=== PATIENT | female | born 1950 | race Caucasian/White ===

== ENCOUNTER 2023-01-11 09:16 | Inpatient (IN) | payer MEDICARE, SELFPAY ==
[2023-01-11 09:40] LABS: #Basophils 0.2 thou/uL (0.0-0.2); #Eosinphils 1.7 thou/uL (0.0-0.7); #Monocytes 0.6 thou/uL (0.11-0.59); #Neutrophils 7.7 thou/uL (1.40-6.50); %Basophils 1.3 % (0.0-1.0); %Eosinophils 13.7 % (0.0-10.0); %Lymphocytes 17.7 % (21.0-51.0); %Monocytes 5.1 % (0.0-10.0); %Neutrophils 61.9 % (42.0-75.0); Hematocrit 41.3 % (36.0-47.0); Hemoglobin 13.2 g/dL (12.0-16.0); Mean Corpuscular Hemoglobin 30.1 pg (27.0-31.0); Mean Corpuscular Volume 94.3 fl (78.0-98.0); Mean Platelet Volume 8.7 fL (7.4-10.4); Platelet Count 318 10x3/uL (130-400); RBC Distribution Width 14.6 % (11.5-14.5); Red Blood Cell (RBC) Count 4.38 mill/uL (4.20-5.40); White Blood Cell (WBC) Count 12.4 10x3/uL (4.8-10.8)
[2023-01-11] MEDS ORDERED: Albuterol 2.5 MG/0.5 ML NEB ONE (09:40)
[2023-01-11 10:06] LABS: ALT (SGPT) 22 U/L (8-55); AST (SGOT) 29 U/L (5-34); Albumin 4.2 g/dL (3.4-4.8); Alkaline Phosphatase 62 U/L (40-110); Anion Gap 15 mmol/L (10-20); BUN (Urea Nitrogen) 19 mg/dL (9.8-20.1); Bilirubin, Total 0.4 mg/dL (0.2-1.2); Calc. Creatinine Clearance 0 mL/min (70-130); Calcium 8.7 mg/dL (7.8-10.44); Carbon Dioxide 22 mmol/L (23-31); Chloride 108 mmol/L (98-107); Estimated GFR 74; Glucose 120 mg/dL (83-110); Potassium 4.3 mmol/L (3.5-5.1); Protein, Total 6.2 g/dL (5.8-8.1); Sodium 141 mmol/L (136-145)
[2023-01-11 10:19] LABS: Troponin I 0.253 ng/mL (< 0.028)
[2023-01-11 12:22] LABS: Actual Bicarbonate (HCO3v) 24.2 mEq/L (22-28); Base Excess -1.8 mEq/L (-2.0 to +3.0); Calcium, Ionized (venous) 1.14 mmol/L (1.16-1.32); Chloride (VBG) 105 mmol/L (98-106); Hematocrit-VBG 43 % (36.0-47.0); Hemoglobin (Hb) 14.6 g/dL (11.7-16.1); Potassium (VBG) 4.31 mmol/L (3.70-5.30); Sodium 143 mmol/L (133-146); pH (venous) 7.344 (7.32-7.43)
[2023-01-11 12:40] LABS: Magnesium 3.1 mg/dL (1.6-2.6)
[2023-01-11 13:17] LABS: Troponin I 0.795 ng/mL (< 0.028)
[2023-01-11] MEDS ORDERED: Aspirin Chewable 81 MG TAB ONE (13:23)
[2023-01-11] MEDS ORDERED: Ipratropium/Albuterol 3 ML NEB NEB PRN (13:59)
[2023-01-11] MEDS ORDERED: Aspirin 81 mg Enteric Coated Tablet PO SCH (14:00)
[2023-01-11] MEDS ORDERED: Nitroglycerin 0.4 MG TAB (25 Tab Bottle) SL PRN (14:00)
[2023-01-11] MEDS ORDERED: methylPREDNISolone Sod Succ 40 MG VIAL IVP SCH ×2 (14:00→21:00)
[2023-01-11] MEDS ORDERED: Senokot S 8.6-50 MG TAB PO PRN (14:02)
[2023-01-11] MEDS ORDERED: Calcium Carbonate 500 MG ChewTAB PO PRN (14:02)
[2023-01-11] MEDS ORDERED: Doxycycline 100 MG CAP PO SCH (15:00)
[2023-01-11] MEDS ORDERED: cefTRIAXone\\ROCEPHIN 1 GM in Sodium Chloride 0.9% 100 ML IVPB SCH (15:00)
[2023-01-11] MEDS: Ipratropium/Albuterol 3 ML NEB NEB SCH ×3 (15:33→22:01)
[2023-01-11] MEDS ORDERED: methylPREDNISolone Sod Succ 40 MG VIAL ONE (16:02)
[2023-01-11] MEDS ORDERED: cefTRIAXone (ROCEPHIN) 1 GM VIAL ONE (16:02)
[2023-01-11] MEDS ORDERED: Doxycycline 100 MG CAP ONE (16:02)
[2023-01-11 16:14] LABS: Troponin I 1.113 ng/mL (< 0.028)
[2023-01-11] MEDS: Acetaminophen 325 MG TAB PO PRN (19:02)
[2023-01-11 19:29] VITALS: BMI 20.2
[2023-01-11] MEDS: Carvedilol 3.125 MG TAB PO SCH (20:58)
[2023-01-11] MEDS: Loratadine 10 MG TAB PO SCH (20:59)
[2023-01-11] MEDS: Doxycycline 100 MG CAP PO SCH (20:59)
[2023-01-11] MEDS: Loperamide HCl 2 MG CAP PO SCH (20:59)
[2023-01-11] MEDS ORDERED: Famotidine 20 MG TAB PO SCH (21:00)
[2023-01-11 21:52] LABS: SARS-CoV-2 NAA Rapid Test Not Detected (NotDetected)
[2023-01-11] MEDS: Mometasone 200 MCG/Formoterol 5 MCG 120 PUFF INHALER INH SCH (21:58)
[2023-01-12] MEDS: Acetaminophen 325 MG TAB PO PRN ×2 (01:52→08:38)
[2023-01-12] MEDS: Ipratropium/Albuterol 3 ML NEB NEB SCH ×6 (01:55→22:54)
[2023-01-12 04:29] LABS: #Monocytes 0.2 thou/uL (0.11-0.59); #Neutrophils 8.4 thou/uL (1.40-6.50); %Basophils 0.2 % (0.0-1.0); %Lymphocytes 12.6 % (21.0-51.0); %Neutrophils 84.8 % (42.0-75.0); Hematocrit 39.1 % (36.0-47.0); Hemoglobin 12.7 g/dL (12.0-16.0); Mean Corpuscular HGB CONC 32.5 g/dL (32.0-36.0); Mean Corpuscular Hemoglobin 29.9 pg (27.0-31.0); Mean Platelet Volume 9.1 fL (7.4-10.4); Platelet Count 321 10x3/uL (130-400); RBC Distribution Width 14.8 % (11.5-14.5); Red Blood Cell (RBC) Count 4.25 mill/uL (4.20-5.40); White Blood Cell (WBC) Count 9.9 10x3/uL (4.8-10.8)
[2023-01-12 04:45] LABS: Anion Gap 16 mmol/L (10-20); BUN (Urea Nitrogen) 20 mg/dL (9.8-20.1); Calc. Creatinine Clearance 49 mL/min (70-130); Calcium 9.5 mg/dL (7.8-10.44); Carbon Dioxide 22 mmol/L (23-31); Chloride 104 mmol/L (98-107); Estimated GFR 83; Glucose 147 mg/dL (83-110); Potassium 4.3 mmol/L (3.5-5.1); Sodium 138 mmol/L (136-145)
[2023-01-12 04:53] LABS: Critical Call Chem Troponin I RESULT DECREASING; Troponin I 1.006 ng/mL (< 0.028)
[2023-01-12] MEDS: Mometasone 200 MCG/Formoterol 5 MCG 120 PUFF INHALER INH SCH ×2 (07:23→23:08)
[2023-01-12 07:27] LABS: Magnesium 2.5 mg/dL (1.6-2.6)
[2023-01-12] MEDS: Carvedilol 3.125 MG TAB PO SCH ×2 (08:38→20:17)
[2023-01-12] MEDS: predniSONE 20 MG TAB PO SCH (08:38)
[2023-01-12] MEDS: Loperamide HCl 2 MG CAP PO SCH ×2 (08:39→20:16)
[2023-01-12] MEDS: Sertraline 25 MG TAB PO SCH (08:39)
[2023-01-12] MEDS: Aspirin 81 mg Enteric Coated Tablet PO SCH (08:40)
[2023-01-12] MEDS: Saccharomyces boulardii 250 MG CAP PO SCH (08:40)
[2023-01-12] MEDS: Doxycycline 100 MG CAP PO SCH ×2 (08:40→20:16)
[2023-01-12] MEDS ORDERED: Loperamide HCl 2 MG CAP PO SCH (09:00)
[2023-01-12] MEDS: Loratadine 10 MG TAB PO SCH (20:17)
[2023-01-13 04:48] LABS: #Monocytes 0.8 thou/uL (0.11-0.59); #Neutrophils 8.7 thou/uL (1.40-6.50); %Basophils 0.3 % (0.0-1.0); %Lymphocytes 16.3 % (21.0-51.0); %Monocytes 7.2 % (0.0-10.0); %Neutrophils 75.8 % (42.0-75.0); Hematocrit 37.5 % (36.0-47.0); Hemoglobin 12.1 g/dL (12.0-16.0); Mean Corpuscular HGB CONC 32.3 g/dL (32.0-36.0); Mean Corpuscular Hemoglobin 29.9 pg (27.0-31.0); Mean Corpuscular Volume 92.6 fl (78.0-98.0); Mean Platelet Volume 9.3 fL (7.4-10.4); Platelet Count 304 10x3/uL (130-400); Red Blood Cell (RBC) Count 4.05 mill/uL (4.20-5.40); White Blood Cell (WBC) Count 11.5 10x3/uL (4.8-10.8)
[2023-01-13 05:20] LABS: Anion Gap 12 mmol/L (10-20); BUN (Urea Nitrogen) 33 mg/dL (9.8-20.1); Calc. Creatinine Clearance 48 mL/min (70-130); Calcium 8.7 mg/dL (7.8-10.44); Carbon Dioxide 24 mmol/L (23-31); Chloride 107 mmol/L (98-107); Estimated GFR 82; Glucose 96 mg/dL (83-110); Magnesium 2.5 mg/dL (1.6-2.6); Potassium 4.3 mmol/L (3.5-5.1); Sodium 139 mmol/L (136-145)
[2023-01-13] MEDS: Mometasone 200 MCG/Formoterol 5 MCG 120 PUFF INHALER INH SCH ×2 (07:14→19:24)
[2023-01-13] MEDS: Ipratropium/Albuterol 3 ML NEB NEB SCH ×5 (07:17→19:22)
[2023-01-13] MEDS: Carvedilol 3.125 MG TAB PO SCH ×2 (08:26→20:27)
[2023-01-13] MEDS: Sertraline 25 MG TAB PO SCH ×2 (08:28→08:29)
[2023-01-13] MEDS: Doxycycline 100 MG CAP PO SCH ×2 (08:28→20:26)
[2023-01-13] MEDS: Aspirin 81 mg Enteric Coated Tablet PO SCH (08:28)
[2023-01-13] MEDS: predniSONE 20 MG TAB PO SCH (08:29)
[2023-01-13] MEDS: Saccharomyces boulardii 250 MG CAP PO SCH (08:29)
[2023-01-13] MEDS: Loperamide HCl 2 MG CAP PO SCH ×2 (08:29→20:27)
[2023-01-13] MEDS ORDERED: Benzonatate 100 MG CAP PO PRN (11:09)
[2023-01-13] MEDS ORDERED: guaiFENesin/DM ER PO SCH (11:15)
[2023-01-13] MEDS: Loratadine 10 MG TAB PO SCH (20:27)
[2023-01-13] MEDS: Acetaminophen 325 MG TAB PO PRN (20:27)
[2023-01-13] MEDS: guaiFENesin/DM ER PO SCH (20:35)
[2023-01-14] MEDS: Ipratropium/Albuterol 3 ML NEB NEB SCH ×3 (02:33→06:18)
[2023-01-14 05:37] LABS: #Basophils 0.1 thou/uL (0.0-0.2); #Eosinphils 0.1 thou/uL (0.0-0.7); #Monocytes 0.8 thou/uL (0.11-0.59); #Neutrophils 4.9 thou/uL (1.40-6.50); %Basophils 0.7 % (0.0-1.0); %Eosinophils 0.6 % (0.0-10.0); %Lymphocytes 30.4 % (21.0-51.0); %Monocytes 9.5 % (0.0-10.0); %Neutrophils 58.4 % (42.0-75.0); Hematocrit 36.5 % (36.0-47.0); Hemoglobin 11.8 g/dL (12.0-16.0); Mean Corpuscular HGB CONC 32.3 g/dL (32.0-36.0); Mean Corpuscular Hemoglobin 29.9 pg (27.0-31.0); Mean Corpuscular Volume 92.4 fl (78.0-98.0); Mean Platelet Volume 9.1 fL (7.4-10.4); Platelet Count 289 10x3/uL (130-400); RBC Distribution Width 14.6 % (11.5-14.5); Red Blood Cell (RBC) Count 3.95 mill/uL (4.20-5.40); White Blood Cell (WBC) Count 8.5 10x3/uL (4.8-10.8)
[2023-01-14 06:10] LABS: Anion Gap 13 mmol/L (10-20); BUN (Urea Nitrogen) 29 mg/dL (9.8-20.1); Calc. Creatinine Clearance 52 mL/min (70-130); Carbon Dioxide 22 mmol/L (23-31); Chloride 105 mmol/L (98-107); Estimated GFR 91; Glucose 89 mg/dL (83-110); Potassium 4.2 mmol/L (3.5-5.1); Sodium 136 mmol/L (136-145)
[2023-01-14] MEDS: Mometasone 200 MCG/Formoterol 5 MCG 120 PUFF INHALER INH SCH (06:17)
[2023-01-14 07:40] VITALS: BP 121/77; TEMP 98.3
[2023-01-14] MEDS: Doxycycline 100 MG CAP PO SCH (08:10)
[2023-01-14] MEDS: Sertraline 25 MG TAB PO SCH (08:10)
[2023-01-14] MEDS: guaiFENesin/DM ER PO SCH (08:10)
[2023-01-14] MEDS: Carvedilol 3.125 MG TAB PO SCH (08:10)
[2023-01-14] MEDS: Saccharomyces boulardii 250 MG CAP PO SCH (08:10)
[2023-01-14] MEDS: Aspirin 81 mg Enteric Coated Tablet PO SCH (08:10)
[2023-01-14] MEDS: predniSONE 20 MG TAB PO SCH (08:10)
[2023-01-14] MEDS: Loperamide HCl 2 MG CAP PO SCH (08:11)
== END 2023-01-14 10:23 | disposition home or self-care (01) | DRG 189 ==
LOC: ERS 09:16 → EDBD 09:16 → ERHOLD 11:59 → 2SW 18:58
PROVIDERS: ADMIT Internal Medicine; ATTEND Internal Medicine
PROC: 4A043R1 Measurement of Venous Saturation, Peripheral, Percutaneous Approach (ICD-10-PCS; principal; 2023-01-11)
DX: J96.01 Acute respiratory failure with hypoxia (principal); I21.A1 Myocardial infarction type 2; J44.1 Chronic obstructive pulmonary disease with (acute) exacerbation; I50.22 Chronic systolic (congestive) heart failure; I13.0 Hypertensive heart and chronic kidney disease with heart failure and stage 1 through stage 4 chronic kidney disease, or unspecified chronic kidney disease; J45.901 Unspecified asthma with (acute) exacerbation; K52.9 Noninfective gastroenteritis and colitis, unspecified; Z20.822 Contact with and (suspected) exposure to COVID-19; F41.9 Anxiety disorder, unspecified; N18.2 Chronic kidney disease, stage 2 (mild); Z88.0 Allergy status to penicillin; Z90.49 Acquired absence of other specified parts of digestive tract; Z90.710 Acquired absence of both cervix and uterus; Z98.890 Other specified postprocedural states; Z87.891 Personal history of nicotine dependence; Z82.49 Family history of ischemic heart disease and other diseases of the circulatory system; I08.1 Rheumatic disorders of both mitral and tricuspid valves
CPT/HCPCS: 36415; 71045; 71250; 80048; 80053; 82785; 82805; 83615; 83735; 83880; 84484; 85025; 86140; 87040; 93005; 93306; 94640; 94660; 94664; 94760; 96372; 99292; J0696; J1650; J2920; J7512; J7611; J7620